=== PATIENT | male | born 2000 | race Caucasian/White ===

== ENCOUNTER 2021-08-01 20:49 | Emergency (ER) | payer BC ==
[2021-08-01] MEDS ORDERED: Bupivacaine PF 0.5% 30 ML VIAL ONE (22:53)
== END 2021-08-02 00:17 | disposition home or self-care (01) ==
LOC: CSHERS 20:49
DX: S61.213A Laceration without foreign body of left middle finger without damage to nail, initial encounter (principal); W26.0XXA Contact with knife, initial encounter
CPT/HCPCS: 12001; S0020